=== PATIENT | female | born 1990 | race Caucasian/White ===

== ENCOUNTER 2021-04-03 03:46 | Outpatient (CLI) | payer MEDICARE ==
[~2021-04-03] VITALS: Ht 152.4 cm; Wt 54.4 kg
[2021-04-03] MEDS ORDERED: ASPIRIN 325 MG TABLET PO ONE (03:47)
[2021-04-03] MEDS ORDERED: IOHEXOL 240 MG/ML IV ONE (03:47)
[2021-04-03 04:34] LABS: BASOPHILS % (AUTO) 0.2 % (0.0-2.0); EOSINOPHILS % (AUTO) 0.1 % (0.0-6.0); HEMOGLOBIN 5.8 g/dL (11.5-14.8); LYMPHOCYTES # (AUTO) 0.1 K/uL (0.8-4.8); LYMPHOCYTES % (AUTO) 3.8 % (20.0-44.0); MEAN CORPUSCULAR HGB CONC 33 g/dl (31.0-36.0); MEAN CORPUSCULAR VOLUME 94 fL (82-100); MONOCYTES # (AUTO) 0.4 K/uL (0.1-1.30); MONOCYTES % (AUTO) 9.9 % (2.0-12.0); NEUTROPHILS # (AUTO) 3.1 K/uL (1.8-8.9); PLATELET COUNT (AUTO) 394 K/uL (150-450); RED BLOOD CELL COUNT(AUTO) 1.88 MIL/uL (4.0-5.2); WHITE BLOOD COUNT (AUTO) 3.7 K/uL (4.3-11.0)
[2021-04-03 04:35] LABS: HEMATOCRIT 18 % (33-45)
== END 2021-04-03 08:31 | disposition home or self-care (01) ==
LOC: RAD 03:46
PROVIDERS: ATTEND Internal Medicine
DX: Z00.00 Encounter for general adult medical examination without abnormal findings (principal)
CPT/HCPCS: 36415; 71250-TC; 74018; 76700-TC; 85025-TC; Q9966